=== PATIENT | female | born 2000 | race Caucasian/White ===

== ENCOUNTER 2023-06-15 13:41 | Outpatient (CLI) | payer BC, OTHER, SELFPAY ==
[2023-06-15 14:08] VITALS: PULSE 101; O2SAT 97
[2023-06-15 14:10] VITALS: BP 124/67; PULSE 100
[2023-06-15] MEDS: ACETAMINOPHEN 500 MG TABLET 1000 MG PO (14:36)
[2023-06-15 14:37] VITALS: BP 117/59; PULSE 91
[2023-06-15 14:46] LABS: Hematocrit 34.9 % (33.0-51.0); Hemoglobin* 11.4 gm/dL (12.0-16.0); Mean Corpuscular HGB Conc 33 gm/dL (32-36); Mean Corpuscular Hemoglobin 27 pg (26-34); Mean Corpuscular Volume 84 fL (80-100); Platelet Count* 293 K/uL (140-440); Red Blood Count 4.17 m/uL (4.00-5.20); White Blood Count* 11.12 K/uL (4.50-11.00)
[2023-06-15 15:03] LABS: Slide Review Reflex No
[2023-06-15 15:07] LABS: Aspartate Amino Transferase* 23 U/L (12-35); Creatinine* 0.4 mg/dL (0.5-1.5); Estimated Glomerular Filt Rate 143 ml/min
[2023-06-15 15:08] LABS: Alanine Aminotransferase* 17 U/L (4-35); Blood Urea Nitrogen* 6 mg/dL (5-24)
[2023-06-15 15:10] LABS: Total Protein Urine 9 mg/dL
[2023-06-15 15:12] LABS: Creatinine Urine 50.7 mg/dL
--- NOTE | 2023-06-15 16:06 | PC.OBNST ---
NST Note NST Note Start: 06/15/23 13:45 Freq: ONCE Status: Active Protocol: Document 06/15/23 15:40 LATRELL (Rec: 06/15/23 16:06 LATRELL [id number]) NST Note 2 Para (# of births) 1 EDC 07/18/23 Gestational Age In Weeks & Days 35 Weeks & 2 Days Patient Presented with Complaint(s) of Headache,Other Other Complaints Hx of Pre E in 1st . Lingering Headache x2 days. Reactive Yes Appropriate for Gestational Age Yes ARTEMIO Mckeon Date 06/15/23 Reactive Yes Appropriate for Gestational Age Yes ARTEMIO Acosta RN Date 06/15/23 OB NST charge Yes Complete NST Note via Write Note Yes The provider's electronic signature indicates the NST is reactive/appropriate for gestational age. *Note to provider: If an addendum is required, open the patient's chart and click on the note under the Nurse/Allied Health tab.
[2023-06-16 10:01] LABS: Appearance Urine Slightly Cloudy (Clear); Bilirubin Urine Negative (Negative); Blood Urine Negative (Negative); Color Urine Yellow (Yellow); Glucose Urine Negative (Negative); Ketones Urine Trace (Negative); Leukocyte Esterase Urine Trace (Negative); Nitrite Urine Negative (Negative); Protein Urine Negative (Negative); Specific Gravity Urine 1.015 (1.000-1.030); Urobilinogen Urine 0.2 (0.2-1.0)
[2023-06-16 10:12] LABS: Bacteria Urine Moderate; RBC Urine 0-2 (0-2); Squamous Epithelial Cell Urine Few (None-Few)
== END 2023-06-15 15:55 | disposition home or self-care (01) ==
LOC: OB OUT 13:41 → OB 13:42
PROVIDERS: PCP Family Medicine; Visit Provider Family Medicine
DX: O09.213 Supervision of pregnancy with history of pre-term labor, third trimester (principal); O26.893 Other specified pregnancy related conditions, third trimester; R51.9 Headache, unspecified; Z3A.35 35 weeks gestation of pregnancy
CPT/HCPCS: 36415; 59025; 81003; 81015; 82565; 82570; 84156; 84450; 84460; 84520; 85027; 87086; 99213; A9270

== ENCOUNTER 2023-07-19 17:02 | Inpatient (IN) | payer BC, OTHER, SELFPAY ==
[2023-07-19] VITALS (7 sets, daily range): BP systolic 127–145; BP diastolic 63–82; PULSE 93–101; RESP 18; TEMP 36.6–37.2; O2SAT 96–99; BMI 45.7
[2023-07-19] MEDS: hydrOXYzine pamoate 25 MG CAPSULE 100 MG PO (10:12)
[2023-07-19] MEDS: miSOPROStoL 25 MCG/0.25 TABLET PO ×3 (18:21→22:18)
[2023-07-19 18:31] LABS: Basophils Absolute Auto 0.02 K/uL (0.00-0.30); Basophils Percent Auto 0.2 % (0.0-3.0); Eosinophils Absolute Auto 0.05 K/uL (0.00-0.50); Eosinophils Percent Auto 0.5 % (0.0-7.0); Hematocrit 38.9 % (33.0-51.0); Hemoglobin* 12.9 gm/dL (12.0-16.0); Immature Granulocytes Abs Auto 0.05 K/uL (0.00-0.30); Immature Granulocytes Pct Auto 0.5 %; Lymphocytes Percent Auto 18.2 % (20-44); Mean Corpuscular HGB Conc 33 gm/dL (32-36); Mean Corpuscular Hemoglobin 27 pg (26-34); Mean Corpuscular Volume 82 fL (80-100); Monocytes Percent Auto 7.1 % (0.0-11.0); Neutrophils Percent Auto 73.5 % (42.0-72.0); Platelet Count* 302 K/uL (140-440); RDW Coefficient of Variation % 13.7 % (11.5-15.5); Red Blood Count 4.77 m/uL (4.00-5.20); White Blood Count* 10.69 K/uL (4.50-11.00)
[2023-07-19 18:36] LABS: Slide Review Reflex No
[2023-07-19 18:49] LABS: Alanine Aminotransferase* 18 U/L (4-35); Aspartate Amino Transferase* 27 U/L (12-35); Blood Urea Nitrogen* 5 mg/dL (5-24); Creatinine* 0.5 mg/dL (0.5-1.5); Est. Creatinine Clearance* 139.58; Estimated Glomerular Filt Rate 136 ml/min
--- NOTE | 2023-07-19 19:35 | PM.OBHPLI ---
OB - H&P: HPI Labor/Induction History of Present Illness Time Seen by Provider: 19:35 Date Seen: 07/19/23 Chief Complaint: The patient is a 23 year old 2 para 1 at 40.1 weeks gestation by 8 week ultrasound (changed as >7 days difference from LMP), who presents for IOL. Chief complaint: Maternity : 2 Para: 1 Indications for induction: other (macrosomia, BMI 44) Narrative: Malia Briggs is a 23 year old female who presents for IOL at 40.1 weeks gestation . Patient has history of vulvar hematoma with last that required OR evacuation (hemoglobin dropped from 12-8). She has history of preeclampsia with her prior , but blood pressures and LFTs have normalized. Did have presumed fatty liver disease (elevated LFTs at beginning of ) but this resolved. Pre- BMI of 44. She has chronic migraine headaches and did see neuro during . These have been stable, not accelerating. Baby was measuring >97 percentile on 20 week level 2 ultrasound. Recommendation was to be delivered after 39 weeks due to this and maternal BMI. GTT was done x 2 during and was normal. Patient was scheduled last week, but was delayed due to staffing. Growth at 34 weeks gestation: EFW 82 % with Abdominal circumference 92% IOL indications: Macrosomia, prepregnancy BMI of 44 (TWG 3 lbs), history of preeclampsia Martínez score: 4 History of Present Dating criteria: based on 1st trimester US only (>7 days different from LMP) care: good care Ultrasounds: normal 1st trimester US and normal mid trimester US complications comment: chronic headaches, fatty liver disease Labs Blood type: A (-) negative Rubella: immune RPR/VDLR: nonreactive GBS status: negative HBsAG: negative Review of Systems Status of ROS: Reports: 6 or more systems reviewed and unremarkable except as noted in History and below Const: Denies: fever or chills Eyes: Denies: change in vision Cardio: Denies: chest pain or shortness of breath with exertion Resp: Denies: shortness of breath GI: Reports: abdominal pain (some cramping) : Denies: painful urination Neuro: Reports: headache (chronic intermittent) Psych: Reports: anxiety Meds Home Medications and Allergies Home Medications Medication Instructions Recorded Confirmed Type aspirin 81 mg tablet,delayed 81 mg PO DAILY 03/30/23 03/30/23 History release folic acid 1 mg tablet 1 mg PO DAILY 03/30/23 03/30/23 History hydroxyzine HCl 10 mg tablet mg PO 03/30/23 History Allergies Allergy/AdvReac Type Severity Reaction Status Date / Time Sulfa (Sulfonamide Allergy Hives Verified 03/30/23 15:59 Antibiotics) OB - H&P: Exam Physical Exam: Vital signs: Temp Pulse BP Pulse Ox 98.5 F 96 127/81 96 07/19/23 18:47 07/19/23 19:24 07/19/23 19:24 07/19/23 19:25 Constitutional: Constitutional: no acute distress Routine HEENT Exam: Head: Present atraumatic Routine Neck Exam: Neck: Present full ROM Detailed Neck Exam: Thyroids: Thyroid: Present normal Routine Chest/Breast/Axilla Exam: Chest wall: Absent tenderness Routine Respiratory Exam: Respiratory: Present CTA bilaterally; Absent wheezes Routine Cardiovascular Exam: Cardiovascular: RRR, S1 and S2 Routine Exam: Patient deferred: external exam Detailed Labor and Delivery Exam: Patient Gravid: Yes Dilation (cm): 1 Effacement (%): 50 Cervix position: posterior Consistency: medium Cervical ripeness score: 4 Contraction intensity: Mild Fetus (Single): Station: -4 Amniotic Membrane Status: intact Heart Rate Baseline: 130 Monitor Accelerations: Present Monitor Decelerations: None Mcc Variability: Moderate (6-25) Routine Back/Spine/Pelvis Exam: Back/Spine: full ROM Routine Neurological Exam: Present alert and oriented X3 Routine Psychiatric Exam: Present normal affect OB - Results Labs Labs: Short CBC 07/19/23 Range/Units 18:20 WBC 10.69 (4.50-11.00) K/uL Hgb 12.9 (12.0-16.0) gm/dL Hct 38.9 (33.0-51.0) % Plt Count 302 (140-440) K/uL BMP 07/19/23 18:20 BUN 5 Creatinine 0.5 Liver Function 07/19/23 Range/Units 18:20 AST 27 (12-35) U/L ALT 18 (4-35) U/L OB - Problem Based A/P Additional Plan (1) Post term : Status: Acute (2) Macrosomia affecting management of mother: Status: Acute Plan - IOL with cytotec for cervical ripening. - plan on Pitocin/AROM tomorrow - Anticipate . Delivery/Labor/Induction Plan Plan: induction Induction method: per misoprostol protocol
[2023-07-19] MEDS: MORPHINE 10 MG/ML inj IM (22:17)
[2023-07-20] VITALS (80 sets, daily range): BP systolic 97–168; BP diastolic 49–100; PULSE 56–103; RESP 16–18; TEMP 36.4–37.1; O2SAT 98–100
[2023-07-20] MEDS: miSOPROStoL 25 MCG/0.25 TABLET PO (00:20)
[2023-07-20] MEDS: LACTATED RINGERS 1000 ML 1,000 ML 1200 ML IV (03:54)
[2023-07-20] MEDS: ROPIVACAINE 0.2% 100 ml 100 ML 12 MG EPIDURAL (04:48)
[2023-07-20] MEDS: LACTATED RINGERS 1000 ML 1,000 ML 125 ML IV ×2 (04:48→12:10)
--- NOTE | 2023-07-20 04:55 | PM.ANBPRC ---
PFSH PFSH Social History What is your current living situation?: I presently have a place to live Problems where you live: no known problems In the past 12 months, utilities in danger of being shut off: no In past 12 months, lack of transportation kept you from medical appts, meetings, work, or getting things needed for daily living: no In the past 12 mos, have been you worried that your food would run out before you had money to buy more?: never true In the past 12 mos, the food you bought just didn't last and you didn't have money to buy more?: never true Smoking Status: Never smoker How often do you have a drink containing alcohol: never AUDIT-C Alcohol total score: 0 Non-prescribed substance use: denies use How often does anyone, including family, friends and others, physically hurt you: never How often does anyone, including family, friends and others, insult or talk down to you: never How often does anyone, including family, friends and others, threaten you with harm: never How often does anyone, including family, friends and others, scream or curse at you: never Meds Home Medications and Allergies Home Medications Medication Instructions Recorded Confirmed Type aspirin 81 mg tablet,delayed 81 mg PO DAILY 03/30/23 03/30/23 History release folic acid 1 mg tablet 1 mg PO DAILY 03/30/23 03/30/23 History hydroxyzine HCl 10 mg tablet mg PO 03/30/23 History Allergies Allergy/AdvReac Type Severity Reaction Status Date / Time Sulfa (Sulfonamide Allergy Hives Verified 07/19/23 20:35 Antibiotics) Results Labs Labs: Laboratory Results - last 24 hr 07/19/23 18:20 WBC 10.69 RBC 4.77 Hgb 12.9 Hct 38.9 MCV 82 MCH 27 MCHC 33 RDW Coeff of Micheline 13.7 Plt Count 302 Neut % (Auto) 73.5 H Lymph % (Auto) 18.2 L [place] % (Auto) 7.1 Eos % (Auto) 0.5 Baso % (Auto) 0.2 Neut # (Auto) 7.90 H Lymph # (Auto) 1.90 [place] # (Auto) 0.80 Eos # (Auto) 0.05 Baso # (Auto) 0.02 Abs Immat Gran (auto) 0.05 Imm/Tot Granulo (auto) 0.5 BUN 5 Creatinine 0.5 Estimated Creat Clear 139.58 Estimated GFR 136 AST 27 ALT 18 Blood Type A Negative Antibody Screen POSITIVE Vital Signs Vital Signs: Last Vital Signs Temp 97.9 F 07/20/23 04:19 Pulse 71 07/20/23 04:53 Resp 18 07/19/23 19:24 BP 118/67 07/20/23 04:53 Pulse Ox 99 07/20/23 04:50 Weight: 113.398 kg Height: 157.48 cm Anesthesia Procedures Epidural Insertion Patient Location: OB Start Time: 04:00 Stop Time: 05:00 Start Date: 07/20/23 Stop Date: 07/20/23 Reason for Block: procedure for pain Patient Position: sitting Performed By: Alireza Hummel Preanesthetic Checklist: IV checked, risks and benefits discussed, surgical consent, monitors and equipment checked, pre-op evaluation, timeout performed and anesthesia consent Prep: chlorhexidine gluconate Monitoring: blood pressure monitoring, continuous pulse oximetry and heart rate Approach: midline Vertebral Space: lumbar (1-5) Epidural Technique: PRASANNA saline Needle Type: Tuohy needle Injection Technique: continuous catheter Needle gauge: 17 Needle Length (cm): 10 cm Needle Insertion Depth (cm): 8 Catheter Gauge: 19 Catheter Type: multi-orifice Catheter at skin depth (cm): 14 Test Dose Result: negative and lidocaine 1.5% with epinephrine 1 to 200,000
[2023-07-20] MEDS: PHENYLEPHRINE 100 MCG/ML SYRINGE IVP ×2 (05:13→07:39)
[2023-07-20] MEDS: ONDANSETRON 2 MG/ML inj 4 MG IV ×2 (05:31→10:43)
[2023-07-20] MEDS: OXYTOCIN 30 unit/500 ML in NS 30 UNIT/500 ML BAG IVPB (06:32)
[2023-07-20] MEDS: LACTATED RINGERS 1000 ML 1,000 ML 500 ML IV (09:33)
[2023-07-20] MEDS: ACETAMINOPHEN 500 MG TABLET 1000 MG PO ×3 (11:15→23:27)
--- NOTE | 2023-07-20 11:27 | W.PM.VAGDE_ITS ---
OB Procedure Vag Delivery Mother Details Mother Details: The patient is a 23 year-old, 2, Para 1, admitted on 07/19/23 at 40w1 Days gestation for IOL for presumed macrosomia, history of preeclampsia in prior . : 2 Para: 1 Weeks Gestation: 40.2 Admission Date: 07/19/23 Additional Details Amniotic Membrane Status: AROM Amniotic Membrane Rupture Date: 07/20/23 Amniotic Membrane Rupture Time: 10:46 Amniotic Membrane Fluid Description: Clear Analgesia/Anesthesia Type: Epidural Waterbirth: No Pitcoin: Yes Intrapartal Events: Labor Induction Induction Method: per misoprostol protocol, per pitocin protocol and AROM Labor Onset: 03:44 Complete: 10:24 Pushin:52 Heart: heart tones during second stage showed minimal variability. Occasional accels. Delivery Details Delivery Date: 07/20/23 Delivery Time: 10:55 Route of delivery: Infant Gender: Female Viability: Alive; Heart Rate Present Position at Delivery: OA Delivery Details: Patient was admitted for IOL due to postdates, presumed macrosomia. She had flores score of 4, was given cytotec overnight. She progressed well, received epidural for analgesia with good response. We tried to start pitocin, but FHT lost variability so we had to discontinue. Baby again loss variability, but patient was complete. We did AROM, she pushed well for 2 contractions and delivered a viable female infant over intact perineum. was placed on maternal abdomen and cried spontaneously. Cord was clamped and cut after a 30- 60 second delay by FOB who was in attendance. Nose and mouth were bulb suctioned.? Evaluation of perineum showed no laceration. Cord blood was collected for Rh negative status. Placenta delivered spontaneously. weight pending. Mom and baby are doing well at the time of this note. 1 Minute Interval Total Score: 8 5 Minute Interval Total Score: 9 Additional Details Shoulder Dystocia: No Placenta Delivery Time: 10:59 Placental Delivery Description: Spontaneous Blood Loss: 50 Laceration: None Blood Loss Measurement Type: QBL Bakri Used: No Sponge/Need Count Correct: Yes Cord Vessel Description: 3 Vessels Event Summary Status: Mother and infant were stable after delivery. Disposition: no change
[2023-07-20] MEDS: LABETALOL HCL 5 MG/ML inj IVP ×2 (11:50→12:04)
[2023-07-20 11:59] LABS: Hematocrit 34.2 % (33.0-51.0); Hemoglobin* 11.4 gm/dL (12.0-16.0); Mean Corpuscular HGB Conc 33 gm/dL (32-36); Mean Corpuscular Hemoglobin 27 pg (26-34); Mean Corpuscular Volume 82 fL (80-100); Platelet Count* 318 K/uL (140-440); Red Blood Count 4.19 m/uL (4.00-5.20); White Blood Count* 12.56 K/uL (4.50-11.00)
--- NOTE | 2023-07-20 12:03 | P.OBPN_ITS ---
Subjective Time Seen by Provider: 12:03 Date Seen: 07/20/23 Narrative: Patient's BP following delivery are in severe range. Patient states she feels well, no jones, vision changes, RUQ pain. She feels really tired. Objective Exam: appears well, trace edema in LE bilaterally, lungs clear to auscultation bilaterally, Heart RRR, no murmurs. Vital Signs: Last Vital Signs Temp 98.4 F 07/20/23 11:45 Pulse 78 07/20/23 11:59 Resp 16 07/20/23 11:02 BP 162/88 H 07/20/23 11:59 Pulse Ox 98 07/20/23 05:05 Plan Plan: - Discussed with Dr. Blankenship (CUTTING TABLE OPERATOR on) - Will treat with labetalol IV until improved - given severe range bp, will start magnesium - Labs now, repeat every 6 hours
[2023-07-20] MEDS: MAGNESIUM IV 4 GM/100 ML PIGGYBACK IVPB (12:11)
[2023-07-20 12:19] LABS: Slide Review Reflex No
[2023-07-20 12:37] LABS: Alanine Aminotransferase* 19 U/L (4-35); Aspartate Amino Transferase* 27 U/L (12-35); Blood Urea Nitrogen* 5 mg/dL (5-24); Creatinine* 0.5 mg/dL (0.5-1.5); Est. Creatinine Clearance* 139.58; Estimated Glomerular Filt Rate 136 ml/min
[2023-07-20] MEDS: NIFEdipine 10 MG CAPSULE PO (12:47)
[2023-07-20 12:56] LABS: Fibrinogen* 573 mg/dL (200-450); INR 1.01 (0.91-1.10); Prothrombin Time 13.9 Seconds
[2023-07-20 12:57] LABS: Partial Thromboplastin Time* 26 Seconds (23-33)
[2023-07-20 13:12] LABS: Total Protein Urine 9 mg/dL
[2023-07-20 13:13] LABS: Creatinine Urine 67.6 mg/dL
[2023-07-20] MEDS: NIFEdipine 30 MG TAB.ER.24 PO ×2 (16:00→17:49)
[2023-07-20] MEDS: IBUPROFEN 600 MG TABLET PO ×2 (16:01→23:05)
[2023-07-20 18:25] LABS: Hematocrit 35.3 % (33.0-51.0); Hemoglobin* 11.8 gm/dL (12.0-16.0); Mean Corpuscular HGB Conc 33 gm/dL (32-36); Mean Corpuscular Hemoglobin 27 pg (26-34); Mean Corpuscular Volume 82 fL (80-100); Platelet Count* 344 K/uL (140-440); Red Blood Count 4.32 m/uL (4.00-5.20); White Blood Count* 15.58 K/uL (4.50-11.00)
[2023-07-20 18:32] LABS: Slide Review Reflex No
[2023-07-20 18:40] LABS: Alanine Aminotransferase* 20 U/L (4-35); Aspartate Amino Transferase* 33 U/L (12-35); Blood Urea Nitrogen* 6 mg/dL (5-24); Creatinine* 0.4 mg/dL (0.5-1.5); Est. Creatinine Clearance* 174.48; Estimated Glomerular Filt Rate 143 ml/min
[2023-07-21] VITALS (10 sets, daily range): BP systolic 92–132; BP diastolic 57–86; PULSE 74–93; RESP 16–17; TEMP 36.7; O2SAT 98
[2023-07-21] MEDS: LACTATED RINGERS 1000 ML 1,000 ML 75 ML IV ×2 (03:15→03:16)
[2023-07-21] MEDS: IBUPROFEN 600 MG TABLET PO ×3 (04:59→23:05)
[2023-07-21 07:27] LABS: Hematocrit 36.3 % (33.0-51.0); Hemoglobin* 11.8 gm/dL (12.0-16.0); Mean Corpuscular HGB Conc 33 gm/dL (32-36); Mean Corpuscular Hemoglobin 27 pg (26-34); Mean Corpuscular Volume 82 fL (80-100); Platelet Count* 279 K/uL (140-440); Red Blood Count 4.42 m/uL (4.00-5.20); White Blood Count* 10.07 K/uL (4.50-11.00)
[2023-07-21 07:38] LABS: Alanine Aminotransferase* 18 U/L (4-35); Aspartate Amino Transferase* 27 U/L (12-35); Blood Urea Nitrogen* 5 mg/dL (5-24); Creatinine* 0.5 mg/dL (0.5-1.5); Est. Creatinine Clearance* 139.58; Estimated Glomerular Filt Rate 136 ml/min; Slide Review Reflex No
[2023-07-21] MEDS: ACETAMINOPHEN 500 MG TABLET 1000 MG PO ×3 (08:09→20:21)
[2023-07-21] MEDS: DOCUSATE SODIUM 100 MG CAPSULE PO ×2 (08:51→18:34)
[2023-07-21] MEDS: NIFEdipine 30 MG TAB.ER.24 60 MG PO (08:51)
--- NOTE | 2023-07-21 09:25 | P.OBPN_ITS ---
OB - PN:Subj Subjective Date Seen: 07/21/23 Interval history: Patient is pp day #1 after an . She is on magnesium for severe preeclampsia. Nifedipine has been adequately controlling BPs. She reports mild headache, but no vision changes, no abdominal pain. Has some swelling in LEs and hands. Patient comments OB post-: no complaints, pain well controlled, tolerating diet and flatus present [place] infant status: bottle, and doing well [place] feeding status: breast and bottle feeding OB - PN: Obj Exam Physical Exam: Vital signs: Temp Pulse Resp BP Pulse Ox O2 Del Method 97.8 F 92 16 122/82 98 Room Air 07/20/23 23:30 07/21/23 08:13 07/21/23 04:25 07/21/23 08:13 07/20/23 23:30 07/21/23 08:13 Constitutional: Constitutional: no acute distress Routine Abdominal Exam: Fundus: Present firm Comments: fundus at umbilicus. No abdominal tenderness. Routine Extremities Exam: Comments: 1+ edema to upper shins bilaterally. Routine Psychiatric Exam: Psychiatric: Present normal affect and normal thought process OB - PN: Obj Data Labs Labs: Laboratory Results - last 24 hr 07/19/23 07/20/23 07/20/23 18:20 11:46 12:20 WBC 12.56 H RBC 4.19 Hgb 11.4 L Hct 34.2 MCV 82 MCH 27 MCHC 33 Plt Count 318 INR 1.01 APTT 26 Fibrinogen 573 H BUN 5 Creatinine 0.5 Estimated Creat Clear 139.58 Estimated GFR 136 AST 27 ALT 19 Urine Creatinine 67.6 Protein/Creatinin Ratio 0.10 Urine Total Protein 9 Antibody Identification No Antibodies Found by ARC 07/20/23 07/21/23 18:19 07:15 WBC 15.58 H 10.07 RBC 4.32 4.42 Hgb 11.8 L 11.8 L Hct 35.3 36.3 MCV 82 82 MCH 27 27 MCHC 33 33 Plt Count 344 279 INR APTT Fibrinogen BUN 6 5 Creatinine 0.4 L 0.5 Estimated Creat Clear 174.48 139.58 Estimated GFR 143 136 AST 33 27 ALT 20 18 Urine Creatinine Protein/Creatinin Ratio Urine Total Protein Antibody Identification OB - PN: A/P Delivery Assessment and Plan (1) Post term : Status: Acute (2) Macrosomia affecting management of mother: Status: Acute Plan Plan: routine care Comments: Will continue magnesium for 24 hours (done around noon today) Continue nifedipine 60 mg/day. LIkely d/c tomorrow if BP remains <130/80.
[2023-07-21 12:34] LABS: Hematocrit 35.6 % (33.0-51.0); Hemoglobin* 11.8 gm/dL (12.0-16.0); Mean Corpuscular HGB Conc 33 gm/dL (32-36); Mean Corpuscular Hemoglobin 27 pg (26-34); Mean Corpuscular Volume 82 fL (80-100); Platelet Count* 310 K/uL (140-440); Red Blood Count 4.33 m/uL (4.00-5.20); White Blood Count* 10.18 K/uL (4.50-11.00)
[2023-07-21 12:36] LABS: Slide Review Reflex No
[2023-07-21 12:56] LABS: Alanine Aminotransferase* 18 U/L (4-35); Aspartate Amino Transferase* 28 U/L (12-35); Blood Urea Nitrogen* 6 mg/dL (5-24); Creatinine* 0.4 mg/dL (0.5-1.5); Est. Creatinine Clearance* 174.48; Estimated Glomerular Filt Rate 143 ml/min
[2023-07-22 01:15] VITALS: BP 130/85; PULSE 71; RESP 16; TEMP 36.5; O2SAT 98
[2023-07-22] MEDS: ACETAMINOPHEN 500 MG TABLET 1000 MG PO ×2 (04:22→12:45)
[2023-07-22] MEDS: ONDANSETRON 2 MG/ML inj 4 MG IV (04:34)
[2023-07-22 04:40] VITALS: BP 132/84; RESP 16
[2023-07-22] MEDS: IBUPROFEN 600 MG TABLET PO ×2 (06:37→15:43)
--- NOTE | 2023-07-22 07:28 | PM.OBPNVD1 ---
OB - PN:Subj Subjective Time Seen by Provider: 07:28 Date Seen: 07/22/23 Interval history: Patient is pp day #2 after an . She developed severe preeclampsia by BP criteria postapartum and was on magnesium for 24 hours--this was stopped at noon yesterday. Is on Nifedipine ER 60mg and Bp's overnight 130's/80's. She reports intermittent mild headache, resolved currently. No vision changes, no abdominal pain. Mild swelling feet. Lochia mild. Pumping and feeding. OB - PN: Obj Exam Physical Exam: Vital signs: Temp Pulse Resp BP Pulse Ox O2 Del Method 97.7 F 71 16 132/84 98 Room Air 07/22/23 01:15 07/22/23 01:15 07/22/23 04:40 07/22/23 04:40 07/22/23 01:15 07/22/23 01:15 Constitutional: Constitutional: no acute distress Routine HEENT Exam: Head: Present normal inspection Routine Abdominal Exam: Comments: FF per nursing. pt currently pumping sitting up Routine Extremities Exam: Comments: 1+ edema feet Routine Psychiatric Exam: Psychiatric: Present normal affect OB - PN: Obj Data Labs Labs: Laboratory Results - last 24 hr 07/19/23 07/21/23 07/21/23 18:20 07:15 12:24 WBC 10.07 10.18 RBC 4.42 4.33 Hgb 11.8 L 11.8 L Hct 36.3 35.6 MCV 82 82 MCH 27 27 MCHC 33 33 Plt Count 279 310 BUN 5 6 Creatinine 0.5 0.4 L Estimated Creat Clear 139.58 174.48 Estimated GFR 136 143 AST 27 28 ALT 18 18 Antibody Identification No Antibodies Found by ARC OB - PN: A/P Delivery Assessment and Plan (1) Post term : Status: Acute (2) Macrosomia affecting management of mother: Status: Acute (3) Severe pre-eclampsia, : Status: Acute Assessment and Plan: PPD#2, developed severe preeclampsia , off mag since yesterday at noon. Discussed with pt, optimal bp goal < 130/80 prior to d/c. Her bp's have been above this overnight. Will increase nifedipine and monitor throughout the day. If bp's controlled throughout day, possible d/c later today discussed. All ?'s answered.
[2023-07-22 08:04] VITALS: BP 127/83; PULSE 76; RESP 16
[2023-07-22] MEDS: DOCUSATE SODIUM 100 MG CAPSULE PO (09:13)
[2023-07-22] MEDS: NIFEdipine 30 MG TAB.ER.24 90 MG PO (09:14)
[2023-07-22 11:57] VITALS: BP 117/76; PULSE 82; RESP 16
[2023-07-22 16:11] VITALS: BP 125/83; PULSE 86; RESP 16
--- NOTE | 2023-07-22 16:33 | P.DS_ITS ---
DS: Providers Provider Time Seen by Provider: 07:30 Date Seen: 07/22/23 Date of admission: 07/19/23 17:02 Primary care physician: Eliz Caldwell MD Admitting Clinician: Eliz Caldwell MD Attending Physician on discharge: Eliz Caldwell MD Date of Discharge: 07/22/23 DS: Diagnosis Discharge Diagnosis (1) Severe pre-eclampsia, : Status: Acute Problem details: Developed severe preeclampsia by BP criteria and was on magnesium for 24 hours, oral nifedipine ER started. Increased this morning to 90mg daily. BP control improved. pt feels well and eager to go home. Has BP cuff, will monitor bid and followup bp check on Sat at hospital. (2) Post term : Status: Acute (3) (normal spontaneous vaginal delivery): Status: Acute Exam Const: Vital Signs, click to edit/add: Vital Signs - 24 hr 07/21/23 21:09 07/22/23 01:15 07/22/23 04:40 Temperature 98.1 F 97.7 F Pulse Rate [Pulse Oximeter] 86 71 Respiratory Rate 16 16 16 Blood Pressure [Le ft Arm] 123/80 130/85 132/84 Pulse Oximetry 98 98 Oxygen Delivery Me thod Room Air Room Air 07/22/23 08:04 07/22/23 11:57 07/22/23 16:11 Temperature Pulse Rate [Pulse Oximeter] 76 82 86 Respiratory Rate 16 16 16 Blood Pressure [Le ft Arm] 127/83 117/76 125/83 Pulse Oximetry Oxygen Delivery Me thod Room Air Room Air Room Air Common normals: no apparent distress General appearance: cooperative HENMT: Common normals: normocephalic Head and scalp: normal to inspection and normocephalic Resp: Common normals: normal respiratory effort : Other: FF per nursing Extremity: Other: 1+ edema feet OB - DS: Summary Hospital Course Hospital Course: The patient is a 23 year old G 2 P 1 at 40 1/7 weeks gestation that was admitted to the Center on 07/19/23 for induction due to macrosomia. She had an uncomplicated vaginal delivery. She delivered a viable female . She is feeding breastmilk by bottle. She developed severe preeclampsia by BP criteria and was on magnesium for 24 hours. Started on nifedipine ER and tit rated up to 90mg daily this morning. Improved bp control. Intermittent headaches throughout . no headache now. Peripartum Data delivery method: Vaginal Infant Gender: Female Time Spent with Patient Time attestation: Total time spent providing and/or coordinating discharge services: Discharge Plan Discharge Disposition: Home, Self-Care Date of Admission: 07/19/23 17:02 Primary Care Provider: Eliz Caldwell Condition: Stable Anticipated Discharge Date/Time: 07/22/23 16:49 Discharge Medications: New nifedipine 30 mg Tablet Extended Release 24hr 90 mg PO DAILY Qty: 30 0RF acetaminophen 500 mg Tablet 1,000 mg PO Q6H PRN (Reason: pain/fever) Qty: 30 0RF docusate sodium 100 mg Capsule 100 mg PO BID Qty: 30 0RF ibuprofen 600 mg Tablet 600 mg PO Q6H PRNQty: 30 0RF Discontinued aspirin 81 mg tablet,delayed release (DR/EC) 81 mg PO DAILY folic acid 1 mg tablet 1 mg PO DAILY hydroxyzine HCl 10 mg tablet 10 mg PO DAILY Discharge Orders: Discharge Order (Routine); Ordered 07/22/23 Ordered By: Najma Do Patient Education: OB /Bottle Feeding, OB Vaginal/Bottle Feeding Follow Up Appointments: Eliz Caldwell MD [Primary Care Provider] - (Weight check Wednesday 11:30am at [facility] ) Forms: [facility] Info Instructions
== END 2023-07-22 17:22 | disposition home or self-care (01) | DRG 560 ==
PROVIDERS: Admitting Provider Family Medicine; PCP Family Medicine; Visit Provider Family Medicine
DX: O36.63X0 Maternal care for excessive fetal growth, third trimester, not applicable or unspecified (principal); Z3A.40 40 weeks gestation of pregnancy; Z37.0 Single live birth; O48.0 Post-term pregnancy; O14.15 Severe pre-eclampsia, complicating the puerperium
CPT/HCPCS: 01967; 36415; 59200; 76815; 82565; 82570; 84156; 84450; 84460; 84520; 85018; 85025; 85027; 85384; 85610; 85730; 86850; 86870; 86880; 86900; 86901; 88307; A9270; J2270; J2371; J2405; J2795; J3475; J7120; S0020

== ENCOUNTER 2023-08-02 18:49 | Emergency (ER) | payer BC, OTHER, SELFPAY ==
[2023-08-02 19:01] VITALS: BP 128/83; PULSE 89; RESP 18; TEMP 36.7; O2SAT 98; BMI 41.7
--- NOTE | 2023-08-02 22:27 | ED_ITS ---
HPI - General Adult General Time Seen by Provider: 22:27 Date Seen: 08/02/23 Chief complaint: Vaginal Bleeding Stated complaint: Stuff going on down there- had a baby 2wks ago Time Seen by Provider: 08/02/23 21:59 History of Present Illness HPI narrative: This is a pleasant 23-year-old female who is a G2, now P2 female presenting the ER today with vaginal bleeding and vaginal discomfort. She had induction of labor at full-term gestation on 07/20 to deliver her 2nd baby. Her delivery went well. Delivery notes indicate that there was no complications such as perineal laceration or need for a PCI to me. Patient did have to spend the day in the hospital for blood pressure control with magnesium and nifedipine after her delivery but otherwise period was uncomplicated. She has been at home with her baby and doing well. She is . She was noting that the bleeding was slack inning off and getting fairly like, almost non-existent. However yesterday morning the bleeding became a bit heavier again. Bleeding has been dark red but not brownish or purulent. Bleeding has been a bit higher again today. She is changing a pad about every 2 hours but notes that she does not like the feeling of wetness so she is not letting them totally saturated through. She is not lightheaded or dizzy from blood loss. This evening since about 5:00 p.m. she is also feeling an odd sensation around her vagina. She is concerned that she may have a prolapse. She notes that her 1st delivery was complicated by development the labial hematoma that required surgical drainage. No abdominal cramping or uterine cramping. No abdominal pain. No fever chills. No nausea or vomiting. Bowel movements normal. She has had a little bit of dysuria for the past couple of days. Related Data Previous Rx's Medication Instructions Recorded acetaminophen 500 mg tablet 1,000 mg (2 x 500 mg) PO Q6H PRN 07/22/23 pain/fever #30 tabs docusate sodium 100 mg capsule 100 mg PO BID #30 caps 07/22/23 ibuprofen 600 mg tablet 600 mg PO Q6H PRN #30 tabs 07/22/23 nifedipine 30 mg tablet,extended 90 mg (3 x 30 mg) PO DAILY #30 tabs 07/22/23 release 24 hr Allergies Allergy/AdvReac Type Severity Reaction Status Date / Time Sulfa (Sulfonamide Allergy Hives Verified 07/19/23 20:35 Antibiotics) [facility] Medical History (Updated 08/02/23 @ 23:31 by Larry Awad MD) Macrosomia affecting management of mother ?O36.60X0 - Maternal care for excessive growth, unspecified trimester, not applicable or unspecified (ICD-10) Post term ?O48.0 - Post-term (ICD-10) Social History What is your current living situation?: I presently have a place to live Problems where you live: no known problems In the past 12 months, utilities in danger of being shut off: no In past 12 months, lack of transportation kept you from medical appts, meetings, work, or getting things needed for daily living: no In the past 12 mos, have been you worried that your food would run out before you had money to buy more?: never true In the past 12 mos, the food you bought just didn't last and you didn't have money to buy more?: never true Smoking Status: Never smoker How often do you have a drink containing alcohol: never AUDIT-C Alcohol total score: 0 Non-prescribed substance use: denies use How often does anyone, including family, friends and others, physically hurt you : never How often does anyone, including family, friends and others, insult or talk down to you: never How often does anyone, including family, friends and others, threaten you with harm: never How often does anyone, including family, friends and others, scream or curse at you: never Exam Narrative: Exam Narrative: Constitutional: Appears well-developed and well-nourished. Alert. Conversant. Non toxic. HENT: Head: Atraumatic. Nose: Nose normal. Mouth/Throat: Oral mucosa is clear and moist. no trismus. Pharynx normal. Tonsils symmetric. No tonsillar enlargement, erythema, or exudate. Eyes: Conjunctivae normal. EOM normal. Pupils equal, round, and reactive to light. No scleral icterus. Neck: Normal range of motion. Neck supple. No tracheal deviation present. Cardiovascular: Normal rate, regular rhythm. No gallop. No friction rub. No murmur heard. Symmetric radial artery pulses Pulmonary/Chest: Effort normal. No stridor. No respiratory distress. No wheezes. No rales. No rhonchi . No tenderness. Abdominal: Soft. Bowel sounds normal. No distension. No mass. No tenderness. No rebound. No guarding. 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 Normal external genitalia. No evidence for perineal lacerations, labial hematoma, or other abnormality. Normal vaginal mucosa. It looks like the vaginal mucosa on the anterior surface of the patient's vagina around her urethra appears to be mildly inflamed. Possibly related to recent injury. Cervix closed. No evidence for any tissue or membranes from the cervical os. No clear evidence for cervical injury. Minimal dark red bleeding. No cervicitis. No CMT. Musculoskeletal: RUE: Normal range of motion. No tenderness. No deformity LUE: Normal range of motion. No tenderness. No deformity RLE: Normal range of motion. No edema. No tenderness. No deformity LLE: Normal range of motion. No edema. No tenderness. No deformity Lymph: No cervical adenopathy. Neurological: Alert and oriented to person, place, and time. Normal strength. CN II-VII intact. No sensory deficit. GCS eye subscore is 4. GCS verbal subscore is 5. GCS motor subscore is 6. Normal coordination Skin: Skin is warm and dry. No rash noted. No pallor. Normal capillary refill. Psychiatric: Normal mood. Normal affect. Const: Vital Signs, click to edit/add: Vital Signs - 24 hr 08/02/23 19:01 08/02/23 23:32 08/02/23 23:34 Temperature 98.0 F 98.0 F 98.6 F Pulse Rate [Right Pulse Oximeter] 89 89 84 Respiratory Rate 18 18 18 Blood Pressure [Ri t Upper Arm] 128/83 128/83 120/78 Pulse Oximetry 98 98 Oxygen Delivery Me thod Room Air Room Air Course Vital Signs Vital signs: Initial Vital Signs Temperature 98.0 F 08/02/23 19:01 Temperature Source Temporal Artery Scan 08/02/23 19:01 Pulse Rate 89 08/02/23 19:01 Respiratory Rate 18 08/02/23 19:01 Blood Pressure 128/83 08/02/23 19:01 Blood Pressure Mean 98 08/02/23 19:01 Blood Pressure Position Sitting 08/02/23 19:01 Pulse Oximetry 98 08/02/23 19:01 Oxygen Delivery Method Room Air 08/02/23 19:01 Vital Signs Temperature 98.0 F 08/02/23 19:01 Pulse Rate 89 08/02/23 19:01 Respiratory Rate 18 08/02/23 19:01 Blood Pressure 128/83 08/02/23 19:01 Pulse Oximetry 98 08/02/23 19:01 Oxygen Delivery Method Room Air 08/02/23 19:01 Temperature 98.6 F 08/02/23 23:34 Pulse Rate 84 08/02/23 23:34 Respiratory Rate 18 08/02/23 23:34 Blood Pressure 120/78 08/02/23 23:34 Pulse Oximetry 98 08/02/23 23:34 Oxygen Delivery Method Room Air 08/02/23 23:34 Medical Decision Making MDM Narrative Medical decision making narrative: Very pleasant 23-year-old female accompanied to the ER tonight by her mother. She is about 2 weeks status post vaginal delivery now presenting with vaginal pain, sensation of a fullness or foreign body in the vagina, and also slightly increased vaginal bleeding. She is worried because she has a history of a labial hematoma related to the delivery of her 1st child. Pelvic exam here in the ER today shows minimal ongoing vaginal bleeding. No evidence for any labial hematoma, vaginal laceration, perineal injury, or any clear evidence for uterine prolapse. There is a perhaps a little bit of evidence for irritation of the anterior vaginal wall around her urethra. Urinalysis shows hematuria, likely due to vaginal contamination, but no evidence for UTI. She is hemodynamically stable in bleeding slack inning while here in the ER. At this point I do not think she needs hemoglobin monitoring or immediate transfusion. Discussed with patient and her mother that differential would also include but is unlikely to represent, retained products of conception flew into we tried this, or other complication. At this point bleeding is stabilized and they were reassured. Will hold off on pelvic ultrasound tonight. They will follow-up with her OB doctor within 1-2 days for repeat exam and if necessary ultrasound. Precautions return to the ER reviewed. Patient did have hypertension managed in the hospital with magnesium and nifedipine. Blood pressure normal here in the ER tonight. No evidence for evolving E clamps ER HELLP syndrome. Will hold off on lab workup for now. Lab Data Labs: Lab Results 08/02/23 Range/Units 22:33 Urine Color Yellow (Yellow) Urine Appearance Slightly Cloudy A (Clear) Urine pH 6.0 (5.0-8.5) Ur Specific [place] 1.010 (1.000-1.030) Urine Protein Negative (Negative) Urine Glucose (UA) Negative (Negative) Urine Ketones Negative (Negative) Urine Blood 3+ A (Negative) Urine Nitrite Negative (Negative) Urine Bilirubin Negative (Negative) Urine Urobilinogen 0.2 (0.2-1.0) Ur Leukocyte Esterase 1+ A (Negative) Urine RBC 2-5 A (0-2) Urine WBC 2-5 (0-5) Ur Squamous Epith Cells Few (None-Few) Amorphous Sediment Few A (None) Urine Bacteria Few A (None) Discharge Plan Discharge Clinical Impression: Vaginal pain, Vaginal bleeding Patient Disposition: Home, Self-Care Condition: Stable Instructions: Bleeding (ED) Additional Instructions: Please return to the ER or see her doctor right away if you have any worsening symptoms such as worsening bleeding, lightheadedness or weakness, dizziness or fainting, fever, or abdominal pain, or bad uterine cramping. Follow-up with your obstruction by Wednesday for recheck even if you are completely improved. Prescriptions: No Action nifedipine 30 mg Tablet Extended Release 24hr 90 mg PO DAILY Qty: 30 0RF acetaminophen 500 mg Tablet 1,000 mg PO Q6H PRN (Reason: pain/fever) Qty: 30 0RF docusate sodium 100 mg Capsule 100 mg PO BID Qty: 30 0RF ibuprofen 600 mg Tablet 600 mg PO Q6H PRNQty: 30 0RF Follow Up/Referrals: Eliz Caldwell MD [Primary Care Provider] - Stand Alone Forms: [employer] Info Instructions
[2023-08-02 22:48] LABS: Appearance Urine Slightly Cloudy (Clear); Bilirubin Urine Negative (Negative); Blood Urine 3+ (Negative); Color Urine Yellow (Yellow); Glucose Urine Negative (Negative); Ketones Urine Negative (Negative); Leukocyte Esterase Urine 1+ (Negative); Nitrite Urine Negative (Negative); Protein Urine Negative (Negative); Urobilinogen Urine 0.2 (0.2-1.0)
[2023-08-02 23:00] LABS: Amorphous Sediment Urine Few; Bacteria Urine Few; Squamous Epithelial Cell Urine Few (None-Few)
[2023-08-02 23:32] VITALS: BP 128/83; PULSE 89; RESP 18; TEMP 36.7
[2023-08-02 23:34] VITALS: BP 120/78; PULSE 84; RESP 18; TEMP 37; O2SAT 98
== END 2023-08-02 23:38 | disposition home or self-care (01) ==
PROVIDERS: Emergency Provider Emergency Medicine; PCP Family Medicine
DX: O72.1 Other immediate postpartum hemorrhage (principal); R10.2 Pelvic and perineal pain
CPT/HCPCS: 81001; 87086; 99283

== ENCOUNTER 2025-04-21 09:56 | Outpatient (CLI) | payer BC, OTHER, SELFPAY | END 2025-04-21 09:57 | disposition home or self-care (01) | LOC: NFLDREF 04-24 22:49 | PROVIDERS: PCP Family Medicine; Referring Provider Family Medicine; Visit Provider Nurse Practitioner Family | DX: R39.15 Urgency of urination (principal); R39.9 Unspecified symptoms and signs involving the genitourinary system; M54.9 Dorsalgia, unspecified; N30.00 Acute cystitis without hematuria; R30.0 Dysuria | CPT/HCPCS: 87086 ==